=== PATIENT | male | born 1990 | race Caucasian/White ===

== ENCOUNTER 2021-10-18 02:30 | Inpatient (IN) | payer MEDICAID ==
[~2021-10-18] VITALS: Ht 177.8 cm; Wt 78.5 kg
[~2021-10-18 02:30] MED LIST: FERR325T27 PO; RISP1TAB48 PO
[2021-10-18] MEDS ORDERED: HALOPERIDOL 5 MG TABLET PO PRN (02:45)
[2021-10-18] MEDS ORDERED: LORazepam 2 MG TABLET PO PRN (02:45)
[2021-10-18] MEDS ORDERED: ZOLPIDEM TARTRATE 10 MG TABLET PO PRN (02:45)
[2021-10-18 03:20] VITALS: BP 109/67
[2021-10-18] MEDS ORDERED: CloNIDine HCL 0.1 MG TABLET PO PRN (08:30)
[2021-10-18] MEDS ORDERED: NICOTINE 14 MG/24 HOUR PATCH TD PRN (08:30)
[2021-10-18] MEDS ORDERED: MAG HYDROX/AL HYDROX/SIMETH ES 30 ML SUSPENSION UDCUP PO PRN (08:30)
[2021-10-18] MEDS ORDERED: PETROLATUM,WHITE 28 GM JELLY TP PRN (08:30)
[2021-10-18] MEDS ORDERED: IBUPROFEN 400 MG TABLET PO PRN (08:30)
[2021-10-18] MEDS ORDERED: GuaiFENesin/D-METHORPHAN [SUGAR-FREE] 200-20MG/10 ML SYRUP UDCUP PO PRN (08:30)
[2021-10-18] MEDS ORDERED: ALBUTEROL SULFATE HFA 90 MCG/PUFF 8 GM INHALER IH PRN (08:30)
[2021-10-18] MEDS ORDERED: LOPERAMIDE HCL 2 MG CAPSULE PO PRN (08:30)
[2021-10-18] MEDS ORDERED: DOCUSATE SODIUM 100 MG CAPSULE PO PRN (08:30)
[2021-10-18] MEDS ORDERED: ONDANSETRON HCL 4 MG TABLET PO PRN (08:30)
[2021-10-18] MEDS ORDERED: ACETAMINOPHEN 325 MG TABLET PO PRN (08:30)
[2021-10-18] MEDS ORDERED: MAGNESIUM HYDROXIDE SUSPENSION 30 ML UDCUP PO PRN (08:30)
[2021-10-18 11:30] VITALS: BP 115/66
[2021-10-18 14:53] VITALS: BP 109/71
[2021-10-18 17:23] VITALS: BP 117/70
[2021-10-19 09:44] VITALS: BP 101/61
== END 2021-10-19 13:45 | disposition left against medical advice (07) | DRG 750 ==
LOC: 3EC 02:30
PROVIDERS: ADMIT Psychiatry & Neurology Child & Adolescent Psychiatry; ATTEND Psychiatry & Neurology Child & Adolescent Psychiatry
DX: F25.0 Schizoaffective disorder, bipolar type (principal); Z91.14 Patient's other noncompliance with medication regimen; G47.00 Insomnia, unspecified; Z53.29 Procedure and treatment not carried out because of patient's decision for other reasons
CPT/HCPCS: Z7610